=== PATIENT | male | born 1945 | race Hispanic/Latino ===

== ENCOUNTER → 2018-06-26 | Outpatient (CLI) | payer MEDICARE | END | disposition home or self-care (01) | LOC: RAH 07:22 | PROVIDERS: ATTEND Internal Medicine Gastroenterology | DX: N28.1 Cyst of kidney, acquired (principal); I83.90 Asymptomatic varicose veins of unspecified lower extremity; K80.20 Calculus of gallbladder without cholecystitis without obstruction | CPT/HCPCS: 76700; 93975 ==